=== PATIENT | female | born 1950 | race Caucasian/White ===

== ENCOUNTER → 2020-10-19 11:39 | Outpatient (BNVA) | payer MEDICARE, SELFPAY | PROVIDERS: Family Provider Nurse Practitioner; PCP Nurse Practitioner; Visit Provider Nurse Practitioner Family | DX: L50.9 Urticaria, unspecified (principal); E03.9 Hypothyroidism, unspecified; Z79.899 Other long term (current) drug therapy; E55.9 Vitamin D deficiency, unspecified; Z13.6 Encounter for screening for cardiovascular disorders; F41.9 Anxiety disorder, unspecified | CPT/HCPCS: 80053; 80061; 81003; 82306; 83036; 84439; 84443; 85025 ==

== ENCOUNTER 2021-02-24 06:00 | Outpatient (CLI) | payer MEDICARE, SELFPAY | END 2021-02-24 23:59 | disposition home or self-care (01) | LOC: LAB 05-25 14:28 | PROVIDERS: PCP Nurse Practitioner Family; Visit Provider Nurse Practitioner Family | DX: D64.9 Anemia, unspecified (principal); E03.9 Hypothyroidism, unspecified | CPT/HCPCS: 80053; 82607; 82746; 83550; 83921; 84439; 84443; 85025 ==

== ENCOUNTER → 2021-03-24 11:25 | Outpatient (BNVA) | payer MEDICARE, SELFPAY | PROVIDERS: Family Provider Nurse Practitioner; PCP Nurse Practitioner Family; Visit Provider Nurse Practitioner Family | DX: Z79.899 Other long term (current) drug therapy (principal) | CPT/HCPCS: 80053; 82043 ==

== ENCOUNTER 2021-04-04 14:33 | Outpatient (CLI) | payer MEDICARE, SELFPAY ==
--- NOTE | 2021-04-04 15:00 | USCV_ITS ---
Bobbi Stewart Age: 71 Gender: F : 1950 Exam Date: 04/04/2021 15:10 Ordering Phys: BENNETT Cheney APRN Technologist: Shayla Lynch [place] [facility] [place]: cardiac murmur BP: 100 / 65 HR: 66 Rhythm: Sinus Technical Quality: Adequate MEASUREMENTS (Male / Female) Normal Values 2D ECHO LV Diastolic Diameter PLAX 3.8 cm 4.2 - 5.9 / 3.9 - 5.3 cm LV Systolic Diameter PLAX 2.0 cm IVS Diastolic Thickness 1.3 cm 0.6 - 1.0 / 0.6 - 0.9 cm IVS Systolic Thickness 1.6 cm LVPW Diastolic Thickness 0.9 cm 0.6 - 1.0 / 0.6 - 0.9 cm LVPW Systolic Thickness 2.1 cm LVOT Diameter 2.1 cm LV Ejection Fraction 2D Teich 77.8 % LV Ejection Fraction MOD 2C 70.7 % LV Ejection Fraction 2C AL 73.7 % LA Diameter 2.4 cm LA Width 3.0 cm LA Height 5.1 cm RA Width 3.2 cm RA Height 1.9 cm Aorta at Sinotubular Diameter 3.1 cm DOPPLER AV Peak Velocity 121.0 cm/s LVOT Peak Velocity 106.0 cm/s AV Area Cont Eq vti 2.8 cm squared AV Area Cont Eq pk 2.9 cm squared MV Peak Velocity 115.0 cm/s MV Area PHT 2.4 cm squared Mitral E to A Ratio 0.9 MV E' Velocity 55.0 cm/s Mitral E to MV E' Ratio 11.3 Mitral E to LV E' Lateral Ratio 12.8 Mitral E to LV E' Septal Ratio 10.2 TR Peak Velocity 126.5 cm/s TR Peak Gradient 6.4 mmHg Right Atrial Pressure 3.0 mmHg Pulmonary Artery Systolic Pressu 9.4 mmHg PV Peak Velocity 95.0 cm/s RV Acceleration Time 0.1 s RV Ejection Time 0.3 s RV AcT/ET 0.4 FINDINGS Left Ventricle Normal left ventricular size and systolic function, EF 73 %. No regional wall motion abnormalities. Grade I/IV diastolic dysfunction (abnormal relaxation filling pattern), normal to mildly elevated filling pressures. Right Ventricle The right ventricle is normal in size and function. Right Atrium The right atrium is normal in size. Left Atrium The left atrium is normal in size. Mitral Valve Thickened mitral valve. Mild mitral annular calcification. Aortic Valve Thickened aortic valve. Tricuspid Valve No gross abnormalities noted Pulmonic Valve Mild pulmonary valve regurgitation. Pericardium Normal pericardium without effusion. Aorta Normal ascending aorta dimension. CONCLUSIONS Normal left ventricular size and systolic function, EF 73 %. No regional wall motion abnormalities. Grade I/IV diastolic dysfunction (abnormal relaxation filling pattern), normal to mildly elevated filling pressures. Thickened mitral valve. Mild mitral annular calcification. Thickened aortic valve. Mild pulmonary valve regurgitation. Estimated pulmonary artery peak systolic pressure of 9 mmHg. This could be an underestimation because of the poor Doppler signals There is no pericardial effusion. There are no intracardiac masses. No previous study is available for comparison. Dr Padmaja Contreras MD FAC (Electronically Signed) Final Date: 04 April 2021 21:54 S
== END 2021-04-04 14:34 | disposition home or self-care (01) ==
LOC: RAD 14:38
PROVIDERS: PCP Nurse Practitioner Family; Visit Provider Nurse Practitioner Family
DX: R01.1 Cardiac murmur, unspecified (principal); I08.0 Rheumatic disorders of both mitral and aortic valves; E03.9 Hypothyroidism, unspecified; D64.9 Anemia, unspecified
CPT/HCPCS: 80053; 82607; 82746; 83550; 83921; 84439; 84443; 85025; 93306

== ENCOUNTER 2021-05-03 19:01 | Emergency (ER) | payer MEDICARE, SELFPAY ==
--- NOTE | 2021-05-03 19:09 | PC.NURSE ---
EMS BP 210/120 in clinic, EMS 224/111 headache, LORE, EMS 184/92 last read HR 60's low 70's 20g LAC, SR, EKG no acute changes old TX.
[2021-05-03 19:10] VITALS: BP 199/105; PULSE 69; RESP 18; TEMP 36.8; O2SAT 100
--- NOTE | 2021-05-03 19:20 | CTR_ITS ---
PROCEDURE INFORMATION: Exam: CT Head Without Contrast Exam date and time: 05/03/2021 7:20 PM Age: 71 years old Clinical indication: Pain; Other: High BP, unsteady; Headache; Additional info: LOMBARDO TECHNIQUE: Imaging protocol: Computed tomography of the head without contrast. Radiation optimization: All CT scans at this facility use at least one of these dose optimization techniques: automated exposure control; mA and/or kV adjustment per patient size (includes targeted exams where dose is matched to clinical indication); or iterative reconstruction. COMPARISON: No relevant prior studies available. RADIATION DOSE METRICS: Total DLP (mGy-cm): 647.09 FINDINGS: Brain: Normal. No hemorrhage. Unremarkable white matter. No mass effect. Cerebral ventricles: No ventriculomegaly. Paranasal sinuses: Visualized sinuses are unremarkable. No fluid levels. Mastoid air cells: Visualized mastoid air cells are well aerated. Bones/joints: Unremarkable. No acute fracture. Soft tissues: Unremarkable. CT/CT head wo con* [id number] IMPRESSION: No acute intracranial abnormality.
[2021-05-03 20:31] LABS: Basophils # 0.1 10^3/uL (0.0-0.1); Basophils % 1.3 %; Eosinophils # 0.2 10^3/uL (0.0-0.8); Eosinophils % 1.6 %; Hematocrit 47.2 % (37.0-47.0); Lymphocytes # 2.8 10^3/uL (0.8-4.8); Lymphocytes % 29.3 %; Mean Corpuscular HGB Conc 33.9 g/dL (30.0-36.0); Mean Corpuscular Hemoglobin 30.7 pg (28.0-34.0); Mean Corpuscular Volume 90.6 fl (81-99); Mean Platelet Volume 11.3 fL (7.4-10.4); Monocytes # 0.8 10^3/uL (0.2-0.9); Monocytes % 8.3 %; Neutrophils # 5.64 10^3/uL (1.8-7.7); Neutrophils % 59.3 %; Nucleated Red Blood Cells % 0 %; Platelet Count 256 10^3/cmm (130-400); Red Blood Count 5.21 10^6/uL (4.1-5.3); Red Cell Distribution Width 12.1 % (12.1-15.1); White Blood Count 9.5 10^3/uL (4.0-10.0)
[2021-05-03 21:00] LABS: Alanine Aminotransferase 13 U/L (0-33); Albumin Level 4.8 g/dL (3.5-5.2); Alkaline Phosphatase 65 IU/L (35-105); Anion Gap 20.5 (5-19); Aspartate Amino Transferase 20 U/L (0-32); Blood Urea Nitrogen 9 mg/dL (8-23); Calcium 9.1 mg/dL (8.5-10.5); Carbon Dioxide 22 mmol/L (22-29); Chloride 98 mmol/L (98-107); Globulin 2.2 g/dL (1.3-4.6); Glomerular Filtration Rate 99.1 mL/min (90-130); Glucose 88 mg/dL (65-115); Osmolality Calculated 282 mOsm/kg (285-295); Potassium 3.5 mmol/L (3.5-5.1); Sodium 137 mmol/L (136-145); Total Bilirubin 0.3 mg/dL (0.15-1.2)
[2021-05-03 22:22] VITALS: BP 176/98; PULSE 84; RESP 20; O2SAT 99
--- NOTE | 2021-05-03 22:41 | W.ED.GENADLT ---
HPI - General Adult General: Chief complaint: General Medical Stated complaint: HYPERTENSION W/HEADACHE Time Seen by Provider: 05/03/21 22:07 History of Present Illness: HPI narrative: CC: Elevated BP HPI: [71]yo patient w/ no prior hx of HTN presenting to the ED with complaints that her BP is not well controlled. Patient is not taking any BP medicine. For the last week, patient has been having a dull headache. No focal neurological complaints including blindness, diplopia, slurring of speech, dysarthria, or focal weakness. In terms of her headachae, this is not worst headache of life and sudden in onset. Did not reach maximal intensity over first 1-2 hours. Today, patient was seen in primary clinic and was found to have a BP of 199/105. Denies chest pain, SOB, palpitation, N/V/D, pain radiating to the shoulder, headache, vision changes, LOC, or focal neurological deficits. Patient also denies light-headedness, syncope, vertigo abdominal pain, back pain. Tolerating PO meds without issues. Onset: unknown Duration: ongoing Location: home Severity: mild Review of Systems Narrative: Constitutional: No fever, no chills. HEENT: No vision changes CV: No chest pain, no palpitations PULM: No cough, no dyspnea. GI: No abdominal pain, no N/V/D. : No dysuria MSKEL: No edema SKIN: No new rashes, no lesions. NEURO: +headache, no focal weakness. HEME: No visible bruises PSYCH: Normal mood PFSH ED PFSH: Medical History (Updated 05/03/21 @ 22:41 by Maikol Schuster MD) Acute bacterial sinusitis Anemia Essential hypertension Essential hypertension Heart murmur Hypertension screen Hypothyroid Lesion of nose Medication management Urticaria Vitamin D deficiency Social History Smoking and tobacco status: current every day smoker Second hand smoke exposure: No Smoking risk assessment/counseling performed?: No Alcohol intake: never Desire information about alcohol rehabilitation?: No Counseling given: No Desire information about substance/drug rehabilitation?: No Counseling given: No Physical Exam Narrative: EXAM NARRATIVE: Head: Atraumatic Eyes: PERRL, conjunctiva without injection, ENT: Dry membrane moist NECK: Supple without lymphadenopathy LUNGS: LCTAB CV: RRR ABDOMEN: Soft, nontender EXTREMITY: Normal ROM, No track de luna, moderate tremulous movements in the UE SKIN: No rash or erythema, no visible patches, no noticeable cellulitis NEURO: Mental status? Awake, alert, and oriented to self, year, month, location, and situation.? Following simple axial and appendicular commands.? Has appropriate fund of knowledge, comprehension, and insight.? Able to recall and understands pertinent aspects of medical history and current treatment status.? ? Language? Speech is fluent without word-finding difficulties.? Intact naming, expression, nurse receptionist, and repetition.? ? Cranial nerves? 2,3,4,6: PERRL, EOMI with no nystagmus. 5: Intact sensation to light touch, symmetric? 7: Smile symmetrical, no facial droop.? 8: Hearing grossly intact.? 9,10: Normal palate movement.? 11: Normal strength in trapezius bilaterally 12: Tongue protrudes midline.? ? Motor examination? Normal bulk & tone. Strength as follows (R/L): Delts (5/5), Biceps (5/5), Triceps (5/5), Wrist ext (5/5), hip flexors (5/5), plantarflexors (5/5), dorsiflexors (5/5). Sensation? Light Touch: Grossly intact and equal in upper and lower extremities bilaterally? Romberg: Negative.? Distal joint position sense intact ? Coordination? Weyhfc-co-jhpa-finger movements intact without dysmetria or past-pointing.? Rapid fingertaps: preserved amplitude without decriment.? No tremor, myoclonus or truncal ataxia.? ? Gait/stance? Steady, normal narrow base gait with appropriate arm swing and turning.? Tandem gait without hesitation or loss of balance. PSYCH: Cooperative with exam Course Vital Signs: Vital signs: Vital Signs Temperature 98.3 F 05/03/21 19:10 Pulse Rate 69 05/03/21 19:10 Respiratory Rate 18 05/03/21 19:10 Blood Pressure 199/105 05/03/21 19:10 Pulse Oximetry 100 05/03/21 19:10 MDM - General Adult MDM Narrative: Medical decision making narrative: [71]yo patient w/ no prior HX of HTN medications presenting to the ED for concern for hypertension in clinic. Hx of clonidine documented before Rest of exam including full neuro exam intact. Given presentation, history and exam, I do not suspect aortic dissection, hypertensive encephalopathy, intracranial hemorrhage, ACS, TIA/CVA, flash pulmonary edema. Intervention: amlodipine 5mg [10:58pm] On reassessment, BP improved after amlodipine. Patient continues to be symptom-free at this time. Do not suspect an emergent cause. Discussed with the patient the importance of logging BPs and following up with his PCP for adjustment of BP if BP continues to be persistently high. Given return instructions. Rx: Amlodipine 5mg QDaily x 10 days Based on history, exam, vital signs, and work up (as indicated) I do not suspect an ongoing emergent medical condition, and I believe the patient is safe for discharge and outpatient follow-up. The plan of care was discussed with the patient and all questions were answered. The patient agrees with the plan of care and is discharged in stable condition with verbal and written instructions, and verbalized understanding and ability to comply. I discussed the diagnosis and treatment plan at length with the patient. The patient understands signs and symptoms (including those which are new or worsening) which should prompt return to the ED. The patient is to seek prompt outpatient follow-up as noted verbally and/or in the discharge instructions. At the time of discharge the patient is well-appearing, well-hydrated, non-toxic, and assures appropriate follow-up as an outpatient. Lab Data: Labs: Lab Results 05/03/21 05/03/21 19:00 19:20 WBC 9.5 10^3/uL 10^3/ uL (4.0-10.0) RBC 5.21 10^6/uL 10^6 /uL (4.1-5.3) Hgb 16.0 g/dL H g/dL (11.5-15.3) Hct 47.2 % H % (37.0-47.0) MCV 90.6 fl fl (81-99) MCH 30.7 pg pg (28.0-34.0) MCHC 33.9 g/dL g/dL (30.0-36.0) RDW 12.1 % % (12.1-15.1) Plt Count 256 10^3/cmm 10^3 /cmm (130-400) MPV 11.3 fL H fL (7.4-10.4) Neut % (Auto) 59.3 % % Lymph % (Auto) 29.3 % % Bacon % (Auto) 8.3 % % Eos % (Auto) 1.6 % % Baso % (Auto) 1.3 % % Neut # (Auto) 5.64 10^3/uL 10^3 /uL (1.8-7.7) Lymph # (Auto) 2.8 10^3/uL 10^3/ uL (0.8-4.8) Bacon # (Auto) 0.8 10^3/uL 10^3/ uL (0.2-0.9) Eos # (Auto) 0.2 10^3/uL 10^3/ uL (0.0-0.8) Baso # (Auto) 0.1 10^3/uL 10^3/ uL (0.0-0.1) Nucleated RBC % (a uto) 0 % % Nucleated RBCs # 0.0 /100WBC /100W BC Sodium 137 mmol/L mmol/L (136-145) Potassium 3.5 mmol/L mmol/L (3.5-5.1) Chloride 98 mmol/L mmol/L (98-107) Carbon Dioxide 22 mmol/L mmol/L (22-29) Anion Gap 20.5 H (5-19) BUN 9 mg/dL mg/dL (8-23) Creatinine 0.6 mg/dL mg/dL (0.5-0.9) GFR Calculation 99.1 mL/min mL/mi n (90-130) Glucose 88 mg/dL mg/dL (65-115) Calculated Osmolal ity 282 mOsm/kg L mOs m/kg (285-295) Calcium 9.1 mg/dL mg/dL (8.5-10.5) Total Bilirubin 0.3 mg/dL mg/dL (0.15-1.2) AST 20 U/L U/L (0-32) ALT 13 U/L U/L (0-33) Alkaline Phosphata se 65 IU/L IU/L (35-105) Total Protein 7.0 g/dL g/dL (6.6-8.7) Albumin 4.8 g/dL g/dL (3.5-5.2) Globulin 2.2 g/dL g/dL (1.3-4.6) Imaging Data^: Other Imaging: Radiologist's impression: [id number] [place], [place] [address]NX Scan ReportSigned Patient: Bobbi Stewart #: [id number]: 1950cct#:[id number]/Sex: 71 / FADM Date: 05/03/21Loc: ERRoom/Bed:Attending Dr: Ordering Provider/Ordering MD: Kate Marquis MD Date of Service: 05/03/21 Procedure(s): CT head wo con* [id number] Accession Number(s): [id number] Report Number: [id number] PROCEDURE INFORMATION: Exam: CT Head Without Contrast Exam date and time: 05/03/2021 7:20 PM Age: 71 years old Clinical indication: Pain; Other: High BP, unsteady; Headache; Additional info: LOMBARDO TECHNIQUE: Imaging protocol: Computed tomography of the head without contrast. Radiation optimization: All CT scans at this facility use at least one of these dose optimization techniques: automated exposure control; mA and/or kV adjustment per patient size (includes targeted exams where dose is matched to clinical indication); or iterative reconstruction. COMPARISON: No relevant prior studies available. RADIATION DOSE METRICS: Total DLP (mGy-cm): 647.09 FINDINGS: Brain: Normal. No hemorrhage. Unremarkable white matter. No mass effect. Cerebral ventricles: No ventriculomegaly. Paranasal sinuses: Visualized sinuses are unremarkable. No fluid levels. Mastoid air cells: Visualized mastoid air cells are well aerated. Bones/joints: Unremarkable. No acute fracture. Soft tissues: Unremarkable. CT/CT head wo con* [id number] IMPRESSION: No acute intracranial abnormality. Dictated By:Maximus Grullon MDSigned By:Maximus Grullon MDSigned Date/Time:05/03/212024DD/ 19 Discharge Plan Discharge Patient Disposition: Home Clinical Impression: Hypertension, Headache Condition: Stable Prescriptions: New amlodipine 5 mg tablet 5 mg PO DAILY Qty: 10 RF: 0 acetaminophen 500 mg tablet 500 mg PO Q6H PRN (Reason: pain) 5 Days Qty: 20 RF: 0 No Action Ensure Liquid PO RF: 0 cholecalciferol (vitamin D3) 1,250 mcg (50,000 unit) capsule 1,250 mcg PO .weekly Qty: 12 RF: 1 citalopram 10 mg tablet 10 mg PO ONCE 30 Days Qty: 30 RF: 1 clonidine HCl 0.1 mg tablet 0.1 mg PO ONCE Qty: 1 RF: 0 acetaminophen 325 mg capsule 325 mg PO ONCE Qty: 1 RF: 0 prednisone 20 mg tablet 40 mg PO .Daily in A.M. 5 Days Qty: 10 RF: 0 doxycycline monohydrate 100 mg capsule 100 mg PO BID 10 Days Qty: 20 RF: 0 Discharge Orders: Discharge ED (Routine); Ordered 05/03/21 Ordered By: Maikol Schuster Referrals: BENNETT Cheney, NUCLEAR MEDICINE CHIEF TECHNOLOGIST [Primary Care Provider] - Discharge Diet: Advance as tolerated Discharge Activity: Resume usual activity Patient Instructions: Acute Headache (ED), Hypertension (ED) Activity Restrictions/Additional Instructions: You need to follow-up with your primary care provider for further adjustment of your blood pressure. Your blood pressure puts you at risk for developing strokes and heart attack. Therefore it is very important for you to follow-up with this number to see if the numbers improve gradually. Because blood pressure adjustment is a gradual process, were not able to change it in 1 visit. Therefore please log your blood pressure and follow-up with your primary care provider in the next 72 hours for further adjustment of your blood pressures. Coding Level of Care Code ED Land Measurer for [place] Mancuso
[2021-05-03] MEDS: amlodipine 5 mg Tablet PO (22:49)
[2021-05-03 23:04] VITALS: BP 176/98; PULSE 84; RESP 20; O2SAT 99
== END 2021-05-03 22:55 | disposition home or self-care (01) ==
PROVIDERS: Emergency Medicine; Emergency Provider Emergency Medicine; PCP Nurse Practitioner Family
DX: R51.9 Headache, unspecified (principal); I10 Essential (primary) hypertension; F17.210 Nicotine dependence, cigarettes, uncomplicated
CPT/HCPCS: 70450; 80053; 85025; 99283

== ENCOUNTER → 2021-05-05 11:54 | Outpatient (BNVA) | payer MEDICARE, SELFPAY | PROVIDERS: PCP Nurse Practitioner Family; Visit Provider Nurse Practitioner Family | DX: I10 Essential (primary) hypertension (principal); Z79.899 Other long term (current) drug therapy | CPT/HCPCS: 81003; 82043 ==

== ENCOUNTER 2021-07-19 08:03 | Outpatient (CLI) | payer MEDICARE, SELFPAY ==
[2021-07-19 08:21] VITALS: BMI 18.6
--- NOTE | 2021-07-19 08:24 | ECG_ITS ---
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 Interpretive Statements NAME OF STUDY: LEXISCAN SESTAMIBI STRESS TEST INDICATION: Abnormal EKG Converted to lexiscan, THR on treadmill not achieved. PROCEDURE: At the baseline, the EKG revealed normal sinus rhythm with a first-degree AV block. The baseline blood pressure was 127/80 mm Hg with a heart rate of 62 beats/min. Lexiscan was infused over a period of 20 seconds. A total of 0.4 milligrams of Lexiscan was infused. The stress phase was continued for a total of 5 minutes. Heart rate at the end of the stress phase was 82 with a blood pressure 85/64. The EKG at the peak infusion revealed no significant changes. Sestamibi was injected 20 seconds after the Lexiscan infusion. Blood pressure at the end of the recovery phase was 109/71 with a heart rate of 79 per minute. CONCLUSION: 1. No significant EKG changes with the LexiScan infusion 2. No LexiScan induced chest pain or cardiac arrhythmia 3. Normal blood pressure and heart rate response 4. Sestamibi/sestamibi perfusion scan pending; see separate report. Electronically Signed On 07-22-2021 19:27:21 GOLD LEAF ROLLER by Padmaja Contreras M.D. [id number]
--- NOTE | 2021-07-19 08:25 | NMCV_ITS ---
NM aftab perf SPECT r/s* [id number] Bobbi Stewart Age: 71 Gender: F : 1950 Exam Date: 07/19/2021 09:29 Ordering Phys: Padmaja Contreras MD ([email or web address]) Technologist: ELISA Cross Exam Location: [facility] Indications: ABNORMAL EKG STRESS TEST Please see separate stress test report in [facility] for full findings IMAGE PROTOCOL Rest/Stress 1 Lexiscan Day Radiopharmaceutical Dose (mCi) Administration Site Administered by Rest: Tc-99m 10.5 IV ELISA Cross Sestamibi Stress:Tc-99m 32.5 IV ELISA Cross Sestamibi Rest: 07/19/2021 60 Discovery 630 Stress: 07/19/2021 45 Discovery 630 0.4mg Lexiscan. Images obtained in supine and prone position. SPECT RESULTS Technical Quality: Excellent Raw Data Analysis: Normal Image Corrections: No attenuation or motion correction applied Summed Stress Score: 0 Summed Rest Score: 0 Summed Difference Score: 0 PERFUSION FINDINGS Fairly uniform myocardial tracer uptake with no significant perfusion abnormalities FUNCTIONAL RESULTS (calculated via Gated SPECT) Stress Image LV EF (%): 70 Stress EDV (mL):82 TID: 0.95 Stress ESV (mL):25 FUNCTIONAL FINDINGS: Segmental wall motion analysis revealing no gross wall motion abnormalities IMPRESSIONS 1. Uniform myocardial tracer uptake with no significant perfusion abnormalities. 2. Normal LV ejection fraction 70%. 3. LV wall motion analysis revealing no gross wall motion normalities. 4. Normal LV volume. No significant coronary ischemia, based on the above findings. No similar previous studies for comparison Dr Padmaja Contreras MD FACC (Electronically Signed) Final Date: 19 July 2021 15:05 S
[2021-07-19] MEDS: regadenoson 0.4 Mg/5 ml Syringe IVP (10:32)
[2021-07-19 10:45] VITALS: BP 133/84; PULSE 70
== END 2021-07-19 08:04 | disposition home or self-care (01) ==
PROVIDERS: PCP Nurse Practitioner Family; Visit Provider Internal Medicine Cardiovascular Disease
DX: R94.31 Abnormal electrocardiogram [ECG] [EKG] (principal); R06.02 Shortness of breath
CPT/HCPCS: 78452; 93017; A9500; J2785

== ENCOUNTER → 2021-08-25 10:59 | Outpatient (BNVA) | payer MEDICARE, SELFPAY | PROVIDERS: PCP Nurse Practitioner Family; Visit Provider Internal Medicine Cardiovascular Disease | DX: I10 Essential (primary) hypertension (principal); R94.31 Abnormal electrocardiogram [ECG] [EKG]; F41.9 Anxiety disorder, unspecified; F32.A Depression, unspecified; R01.1 Cardiac murmur, unspecified; R09.89 Other specified symptoms and signs involving the circulatory and respiratory systems | CPT/HCPCS: 99214 ==

== ENCOUNTER 2021-10-11 10:03 | Outpatient (CLI) | payer MEDICARE, SELFPAY ==
--- NOTE | 2021-10-11 09:30 | USCV_ITS ---
Bobbi Stewart Age: 71 Gender: F : 1950 Exam Date: 10/11/2021 10:18 Ordering Phys: Padmaja Contreras MD ([email or web address]) Technologist: Lan Aaron Exam Location: [facility] [place] Indication: carotid stenosis Risk Factors: Previous Vascular Surgery: Right Brachial BP: / Left Brachial BP: / Right Left Velocity (cm/s) Spectral Plaque Velocity (cm/s) Spectral Plaque Syst/Diast Broadening Syst/Diast Broadening 78.30/ 22.10 Prox CCA 52.10 / 11.10 71.70/ 20.90 Mid CCA 58.10 / 12.80 63.90/ 15.40 Distal CCA 59.80 / 15.40 100.30/32.00 Prox ICA 53.00 / 13.70 79.40/ 20.90 Mid ICA 88.00 / 26.50 105.80/28.70 Distal ICA 48.50 / 16.60 119.10 ECA 66.70 1.11 ICA/CCA 1.51 Antegrade Vertebral Antegrade 72.80/ 14.30 cm/s 28.30/ 11.20 cm/s Bi Subclavian Bi 82.00 65.10 FINDINGS Minimal plaques at the bifurcations bilaterally Intimal thickening in the common carotid arteries bilaterally Antegrade flow in the vertebral arteries bilaterally Normal Doppler flow velocities in the external carotid, subclavian and vertebral arteries CONCLUSIONS Minimal plaques at the bifurcations bilaterally suggesting less than 50% stenosis. No significant stenosis in the external carotid, vertebral or subclavian arteries, based on the above findings. No similar previous studies are available for comparison Dr Padmaja Contreras MD [facility] (Electronically Signed) Final Date: 11 Oct 2021 17:59 S
== END 2021-10-11 10:04 | disposition home or self-care (01) ==
LOC: RAD 10:05
PROVIDERS: PCP Nurse Practitioner Family; Visit Provider Internal Medicine Cardiovascular Disease
DX: I77.9 Disorder of arteries and arterioles, unspecified (principal); R09.89 Other specified symptoms and signs involving the circulatory and respiratory systems
CPT/HCPCS: 93880

== ENCOUNTER → 2022-02-20 10:14 | Outpatient (BNVA) | payer MEDICARE, SELFPAY | PROVIDERS: PCP Nurse Practitioner Family; Visit Provider Nurse Practitioner Family | DX: I10 Essential (primary) hypertension (principal); F17.200 Nicotine dependence, unspecified, uncomplicated | CPT/HCPCS: 99213 ==

== ENCOUNTER → 2022-03-09 15:12 | Outpatient (BNVA) | payer MEDICARE, SELFPAY | PROVIDERS: Visit Provider Nurse Practitioner | DX: I10 Essential (primary) hypertension (principal); E55.9 Vitamin D deficiency, unspecified; L65.9 Nonscarring hair loss, unspecified; E03.9 Hypothyroidism, unspecified | CPT/HCPCS: 82306; 84443; 85025 ==

== ENCOUNTER → 2022-10-04 15:12 | Outpatient (BNVA) | payer MEDICARE, SELFPAY | PROVIDERS: PCP Nurse Practitioner; Visit Provider Internal Medicine Cardiovascular Disease | DX: I10 Essential (primary) hypertension (principal); R94.31 Abnormal electrocardiogram [ECG] [EKG]; E03.9 Hypothyroidism, unspecified; R01.1 Cardiac murmur, unspecified; D64.9 Anemia, unspecified; F17.200 Nicotine dependence, unspecified, uncomplicated | CPT/HCPCS: 99214 ==

== ENCOUNTER → 2023-03-13 12:01 | Outpatient (BNVA) | payer MEDICARE, SELFPAY | PROVIDERS: PCP Nurse Practitioner; Visit Provider Nurse Practitioner Family | DX: F41.9 Anxiety disorder, unspecified (principal); F32.A Depression, unspecified; I10 Essential (primary) hypertension; R19.7 Diarrhea, unspecified | CPT/HCPCS: 83630; 87177; 87209 ==

== ENCOUNTER → 2023-05-07 11:14 | Outpatient (BNVA) | payer MEDICARE, SELFPAY | PROVIDERS: PCP Nurse Practitioner; Visit Provider Nurse Practitioner Family | DX: R50.9 Fever, unspecified (principal) | CPT/HCPCS: 87400; 87426 ==

== ENCOUNTER → 2025-03-23 14:11 | Outpatient (BNVA) | payer MEDICARE, SELFPAY | PROVIDERS: PCP Registered Nurse; Visit Provider Registered Nurse | DX: I10 Essential (primary) hypertension (principal); R10.9 Unspecified abdominal pain; R41.3 Other amnesia; E55.9 Vitamin D deficiency, unspecified | CPT/HCPCS: 80053; 80061; 81000; 82306; 82607; 84443; 85025; 86003; 86008 ==

== ENCOUNTER 2025-04-21 09:52 | Outpatient (CLI) | payer MEDICARE, SELFPAY ==
--- NOTE | 2025-04-21 10:15 | MR_ITS ---
WS: [id number] MRI BRAIN WITHOUT CONTRAST HISTORY: R41.3 - Other amnesia COMPARISON: CT head 05/03/2021 TECHNIQUE: Diffusion imaging, multiplanar T1, T2 and FLAIR imaging obtained. No evidence for acute infarct or hemorrhage. Gonsalez-white matter differentiation is normal. Mild symmetric atrophy and small vessel changes throughout the white matter. No large territory infarct. No hemorrhage. Mild bilateral symmetric hippocampal atrophy. Ventricles and extra-axial spaces are normal. No inferior displacement of cerebellar tonsils. The sella turcica and pituitary gland are unremarkable. Dural venous sinuses and [place] demonstrate no abnormality on this unenhanced studies. Paranasal sinuses: Clear. Mastoid air cells: Normal. Calvarium and scalp: Intact. MR/MR head wo con* [id number] IMPRESSION: 1. No acute infarct or hemorrhage. 2. Mild cerebral atrophy. 3. Mild bilateral hippocampal atrophy. 4. Mild small vessel changes.
== END 2025-04-21 09:53 | disposition home or self-care (01) ==
LOC: RAD 09:57
PROVIDERS: PCP Registered Nurse; Referring Provider Otolaryngology; Visit Provider Registered Nurse
DX: R41.3 Other amnesia (principal); G31.89 Other specified degenerative diseases of nervous system; G31.9 Degenerative disease of nervous system, unspecified; I67.89 Other cerebrovascular disease
CPT/HCPCS: 70551